=== PATIENT | female | born 1995 | race Caucasian/White ===

== ENCOUNTER 2021-12-06 23:39 | Emergency (ER) | payer OTHER ==
[~2021-12-06] VITALS: Ht 162.6 cm; Wt 68.0 kg
[2021-12-06 23:44] VITALS: BP 121/70
[2021-12-07 00:59] LABS: BASOPHILS % 0.3 % (0.0-2.0); EOSINOPHILS % 0.3 % (0.0-5.0); HEMATOCRIT. 32.9 % (36.0-48.0); HEMOGLOBIN. 11.4 g/dL (12.0-16.0); LYMPHOCYTES % 21.4 % (20.0-50.0); MEAN CORPUSCULAR HEMOGLOBIN 28.5 pg (28.0-32.0); MEAN CORPUSCULAR VOLUME 82.3 fL (81.0-99.0); MONOCYTES % 6.1 % (2.0-8.0); NEUTROPHILS % 71.9 % (40.0-76.0); PLATELET 225 x1000/uL (130-400); RED BLOOD CELL COUNT 3.99 mill/uL (4.2-5.4); RED CELL DISTRIBUTION WIDTH 14.2 % (11.6-14.6)
[2021-12-07 01:08] LABS: CHLORIDE 109 mEq/L (98-107)
[2021-12-07 02:26] LABS: CLARITY URINE TURBID (CLEAR); COLOR URINE DARK YELLOW (YELLOW); KETONES URINE 4+ (NEGATIVE); LEUKOCYTE ESTERASE URINE 2+ (NEGATIVE); NITRITE URINE NEGATIVE (NEGATIVE); OCCULT BLOOD URINE NEGATIVE (NEGATIVE); PROTEIN URINE 1+ (NEGATIVE); SPECIFIC GRAVITY URINE 1.032 (1.005-1.030)
[2021-12-07] MEDS ORDERED: ONDANSETRON 4MG ODT PO ONE (02:30)
[2021-12-07] MEDS ORDERED: NITR-87 MT (05:13)
[2021-12-07] MEDS ORDERED: ALBU6.7H9 INH (05:18)
== END 2021-12-07 05:20 | disposition left against medical advice (07) ==
LOC: ER 23:39
DX: O44.22 Partial placenta previa NOS or without hemorrhage, second trimester (principal); N39.0 Urinary tract infection, site not specified; R07.89 Other chest pain; Z3A.15 15 weeks gestation of pregnancy; F41.9 Anxiety disorder, unspecified
CPT/HCPCS: 36415; 76805; 76817; 80053; 81003; 83690; 84702; 85025; 87086; 93005; 99285; Q0162

== ENCOUNTER 2022-10-17 15:21 | Emergency (ER) | payer MEDICAID, OTHER ==
[~2022-10-17] VITALS: Ht 167.6 cm; Wt 75.0 kg
[~2022-10-17 15:21] MED LIST: ALBU6.7H3 INH; NITR-87 MT
[2022-10-17] MEDS ORDERED: ACETAMINOPHEN 325MG TABLET PO ONE (19:45)
[2022-10-17] MEDS ORDERED: IBUPROFEN 400MG TABLET PO ONE (19:45)
[2022-10-17] MEDS ORDERED: BO1 TP (19:56)
[2022-10-17] MEDS ORDERED: POLY1BAN TP (19:56)
[2022-10-17] MEDS ORDERED: TOPUD PO (19:56)
[2022-10-17] MEDS ORDERED: IBUP-2028 MT (19:56)
[2022-10-17] MEDS ORDERED: [UNRECOGNIZED DRUG - REMARK] TP (19:56)
[2022-10-17 20:07] VITALS: BP 114/81
== END 2022-10-17 22:04 | disposition home or self-care (01) ==
LOC: ER 15:21
DX: S00.83XA Contusion of other part of head, initial encounter (principal); S40.212A Abrasion of left shoulder, initial encounter; S20.412A Abrasion of left back wall of thorax, initial encounter; M79.18 Myalgia, other site; Y93.89 Activity, other specified; V43.42XA Person boarding or alighting a car injured in collision with other type car, initial encounter; Y92.488 Other paved roadways as the place of occurrence of the external cause
CPT/HCPCS: 71045; 99283